=== PATIENT | female | born 2000 | race African-American/Black ===

== ENCOUNTER 2023-08-18 09:23 | Emergency (ER) | payer OTHER ==
--- NOTE | 2023-08-18 09:44 | ED Physician Documentation ---
PD HPI HEADACHE - Stated complaint Stated Complaint: H/A,NAUSEA - Chief complaint Chief Complaint: Neuro - History obtained from History obtained from: Patient - History of Present Illness Timing - onset: Today (onset several hours ago abruptly of nausea and repeititve vmoiting. crampy intermittent mid abd pain.) Timing - onset during: Sleep Timing - duration: Hours (few) Timing - details: Gradual onset (had onset of nausea and vomiting and subsequently has developed headache with standing.), Still present Worst headache ever?: No: Worst headache ever? Location: Global Quality: Throbbing, Aching Associated symptoms: Nausea, Vomiting (nausea and vomiting initially with subsequent PARSONS.). No: Fever, Stiff neck, Weakness, Numbness, Vision changes Worsened by: No: Light, Noise Contributing factors: No: Recent illness, Trauma Similar symptoms before: Has not had sx before (she does have occasional migraines but says this feels different and without light/sound sensitive.) Recently seen: Clinic (she and spouse state pelvic cramping and vag bleeding related to miscarriage about 4 weeks ago, was 6-7 weeks EGA. bleeding stopped after several days. No current vag bleeding. Did home preg test and was positive yesterday. had not done tests between time of miscariage and now.) Review of Systems Constitutional: reports: Myalgias. denies: Fever, Chills Nose: denies: Rhinorrhea / runny nose, Congestion Throat: denies: Sore throat Respiratory: denies: Cough GI: reports: Nausea, Vomiting, Diarrhea (loose but not watery). denies: Hematemesis : denies: Discharge PD PAST MEDICAL HISTORY - Past Medical History Past Medical History: Yes Neuro: Migraines Psych: Anxiety, Post traumatic stress disorder - Past Surgical History Past Surgical History: No - Present Medications Home Medications: Ambulatory Orders Medication Instructions Recorded Confirmed Famotidine [Pepcid] 20 mg PO DAILY #20 tablet 08/18/23 Ondansetron Odt [Zofran] 4 mg TL Q6H PRN #10 tablet 08/18/23 Promethazine [Phenergan] 25 mg PO Q6H PRN #10 tab 08/18/23 - Allergies Allergies/Adverse Reactions: Allergies Allergy/AdvReac Type Severity Reaction Status Date / Time No Known Drug Allergies Allergy Verified 08/18/23 09:32 - Social History Does the pt smoke?: No Smoking Status: Never smoker PD ED PE NORMAL - Vitals Vital signs reviewed: Yes - General General: Alert and oriented X 3, Well developed/nourished, Other (appears uncomfortable due to nausea/ holding emesis bag. ) Results - Vitals Vitals: Vital Signs - 24 hr 08/18/23 08/18/23 09:29 12:35 Temperature 37.1 C Heart Rate 74 68 Respiratory 20 15 Rate Blood Pressure 108/87 H 101/67 O2 Saturation 96 99 Oxygen O2 Source Room air - Labs Labs: Laboratory Tests 08/18/23 08/18/23 08/18/23 10:16 10:16 10:16 WBC 3.0 L RBC 4.03 L Hgb 11.9 L Hct 34.8 L MCV 86.4 MCH 29.5 MCHC 34.2 RDW 12.1 Plt Count 193 MPV 9.4 Neut # (Auto) 1.5 Lymph # (Auto) 1.0 L [place] # (Auto) 0.4 Eos # (Auto) 0.0 Baso # (Auto) 0.0 Absolute Nucleated RBC 0.00 Nucleated RBC % 0.0 Manual Slide Review Indicated Platelet Estimate NORMAL (130-450,000) Platelet Morphology NORMAL APPEARANCE RBC Morph Micro Appear NORMAL APPEARANCE Sodium 135 Potassium 3.8 Chloride 107 Carbon Dioxide 25 Anion Gap 3.0 L BUN 10 Creatinine 0.7 Estimated GFR (MDRD) 128 Glucose 89 Calcium 9.0 Magnesium 1.5 L Total Bilirubin 0.4 AST 15 ALT 9 L Alkaline Phosphatase 38 L Total Protein 7.4 Albumin 4.2 Globulin 3.2 Albumin/Globulin Ratio 1.3 Lipase 58 Beta HCG, Quant Nasal Adenovirus (PCR) NOT DETECTED Nasal B. parapertussis DNA (PCR) NOT DETECTED Nasal Coronavir 229E PCR NOT DETECTED Nasal Coronavir HKU1 PCR NOT DETECTED Nasal Coronavir NL63 PCR NOT DETECTED Nasal Coronavir OC43 PCR NOT DETECTED Nasal Enterovir/Rhinovir PCR NOT DETECTED Nasal Influenza B PCR NOT DETECTED Nasal Influenza A PCR NOT DETECTED Nasal Parainfluen 1 PCR NOT DETECTED Nasal Parainfluen 2 PCR NOT DETECTED Nasal Parainfluen 3 PCR NOT DETECTED Nasal Parainfluen 4 PCR NOT DETECTED Nasal RSV (PCR) NOT DETECTED Nasal B.pertussis DNA PCR NOT DETECTED Nasal C.pneumoniae (PCR) NOT DETECTED Kaye Human Metapneumo PCR NOT DETECTED Nasal M.pneumoniae (PCR) NOT DETECTED Nasal SARS-CoV-2 (PCR) NOT DETECTED 08/18/23 10:16 WBC RBC Hgb Hct MCV MCH MCHC RDW Plt Count MPV Neut # (Auto) Lymph # (Auto) [place] # (Auto) Eos # (Auto) Baso # (Auto) Absolute Nucleated RBC Nucleated RBC % Manual Slide Review Platelet Estimate Platelet Morphology RBC Morph Micro Appear Sodium Potassium Chloride Carbon Dioxide Anion Gap BUN Creatinine Estimated GFR (MDRD) Glucose Calcium Magnesium Total Bilirubin AST ALT Alkaline Phosphatase Total Protein Albumin Globulin Albumin/Globulin Ratio Lipase Beta HCG, Quant 1047.3 Nasal Adenovirus (PCR) Nasal B. parapertussis DNA (PCR) Nasal Coronavir 229E PCR Nasal Coronavir HKU1 PCR Nasal Coronavir NL63 PCR Nasal Coronavir OC43 PCR Nasal Enterovir/Rhinovir PCR Nasal Influenza B PCR Nasal Influenza A PCR Nasal Parainfluen 1 PCR Nasal Parainfluen 2 PCR Nasal Parainfluen 3 PCR Nasal Parainfluen 4 PCR Nasal RSV (PCR) Nasal B.pertussis DNA PCR Nasal C.pneumoniae (PCR) Kaye Human Metapneumo PCR Nasal M.pneumoniae (PCR) Nasal SARS-CoV-2 (PCR) PD Medical Decision Making - ED course Complexity details: reviewed results (WBC low at 3.0 with low lymphocytes more likely c/w viral illness. abrupt NV would be suggestive of viral GE or food related. Not tender in abdomen on exam. I did not feel imaging would be productive. ), re-evaluated patient (IV fludis, Toradol and Zofran did improve symptoms quite well, with now ability to drink fluids, nibble crackers. ), considered differential (likley viral GE but get labs to eval for lipase/LFTs/lytes. ), d/w patient Reviewed Lab Results: she states had home preg test positive yest with recent miscarriage 4-5 weeks ago. She had been 6-7 weeks . I [place] think the downcouarse of the HCG would have gotten below the level of 1047 during that time. Is a bit early for new . Consider retained products with persistent HCG. She is not having pelvic pain nor ongoing vag bleeding. At this point, I believe a repeat HCG in 3 days would be the most informative with decreasing level would support continued phase out, increasing support new , and persisting similar support retained products. She has had ongoing vomiting and poor PO intake for couple weeks. Gave fluids. Potassium not bad today. Consider vitamin depletion with dehydration. Pt improved enough for sips/fluids. Discussed with her the idea of minimal food initially untils jaskaran had healing time. Departure - Departure Disposition: 01 Home, Self Care Clinical Impression: Nausea and vomiting, Headache, Elevated serum hCG Condition: Stable Record reviewed to determine appropriate education?: Yes Instructions: ED Nausea Vomiting Follow-Up: [facility] Sr [Provider Group] Prescriptions: Famotidine [Pepcid] 20 mg PO DAILY #20 tablet Promethazine [Phenergan] 25 mg PO Q6H PRN #10 tab PRN Reason: Nausea / Vomiting Ondansetron Odt [Zofran] 4 mg TL Q6H PRN #10 tablet PRN Reason: Nausea / Vomiting Comments: My presumption is your nausea and vomiting are more likely either a viral irritation or food related or such. I would anticipate it being better after a day or 2. See how you do with it. I prescribed ondansetron/Zofran if needed for nausea. I would suggest an acid reducing medicine such as famotidine once or twice daily over the next week to help with the stomach recovery from the irritation. You likely will have some element of diarrhea as well. Small frequent fluids and bland food initially and progress as tolerated. Rest as well as you can today and tomorrow. Follow-up with your primary if not fully improved over the next 2 to 3 days. Return if worse. I sent your prescriptions to [facility] pharmacy. Regarding your hCG level. This could represent either a still trailing off level of hormone from your recent miscarriage. However sometimes he will have persistent hormone if there are any incomplete miscarriage/retained products. Follow-up with your primary on Monday for repeat hCG blood test. Your blood level today was 1047. Will want to check and see whether it is going up down or staying the same to determine whether it still the phase out or retained products etc. Return sooner if you have uterine/pelvic pain, vaginal bleeding or discharge, fevers or other concerns. Forms: PCP List Discharge Date/Time: 08/18/23 12:35
[2023-08-18] MEDS ORDERED: ONDANSETRON 4 MG/2 ML VIAL IVP STA (10:06)
[2023-08-18] MEDS ORDERED: KETOROLAC 15 MG/ML VIAL IVP STA (10:06)
[2023-08-18] MEDS ORDERED: SODIUM CHLORIDE 0.9% 1,000 ML IV STA (10:06)
[2023-08-18 10:25] LABS: BASOPHILS % (AUTO) 0.3 %; HCT - HEMATOCRIT 34.8 % (37.0-47.0); HGB - HEMOGLOBIN 11.9 g/dL (12.0-16.0); LYMPHOCYTES % (AUTO) 33.8 %; MEAN CORPUSCULAR HEMOGLOBIN 29.5 pg (27.0-31.0); MEAN CORPUSCULAR HGB CONC 34.2 g/dL (32.0-36.0); MEAN CORPUSCULAR VOLUME 86.4 fL (81.0-99.0); MEAN PLATELET VOLUME 9.4 fL (7.9-10.8); MONOCYTES # (AUTO) 0.4 10^3/uL (0.0-1.0); MONOCYTES % (AUTO) 14.5 %; NEUTROPHILS # (AUTO) 1.5 10^3/uL (1.5-6.6); NEUTROPHILS % (AUTO) 50.1 %; PLT - PLATELET COUNT 193 10^3/uL (130-450); RED BLOOD COUNT 4.03 10^6/uL (4.20-5.40); RED CELL DISTRIBUTION WIDTH 12.1 % (12.0-15.0)
[2023-08-18 10:32] LABS: SLIDE REVIEW? Indicated
[2023-08-18 10:42] LABS: ALBUMIN 4.2 g/dL (3.2-5.5); ALBUMIN/GLOBULIN RATIO 1.3 (1.0-2.2); BILIRUBIN,TOTAL 0.4 mg/dL (0.2-1.0); CREATININE 0.7 mg/dL (0.6-1.3); MAGNESIUM 1.5 mg/dL (1.7-2.3); POTASSIUM 3.8 mmol/L (3.5-4.5); TOTAL PROTEIN 7.4 g/dL (6.4-8.9)
[2023-08-18 10:44] LABS: PLATELET ESTIMATE, MANUAL NORMAL (130-450,000) (NORMAL); PLATELET MORPHOLOGY NORMAL APPEARANCE (NORMAL)
[2023-08-18 10:45] LABS: RBC MORPHOLOGY (MULTIPLE) NORMAL APPEARANCE (NORMAL)
[2023-08-18 12:05] LABS: B. PARAPERTUSSIS- RESP PCR PAN NOT DETECTED; B. PERTUSSIS- RESP PCR PANEL NOT DETECTED; C. PNEUMONIAE- RESP PCR PANEL NOT DETECTED; CORONAVIRUS 229E-RESP PCR NOT DETECTED; CORONAVIRUS HKU1-RESP PCR NOT DETECTED; CORONAVIRUS NL63-RESP PCR NOT DETECTED; CORONAVIRUS OC43-RESP PCR NOT DETECTED; HUMAN METAPNEUMOVIRUS NOT DETECTED; INFLUENZA A- RESP PCR PANEL NOT DETECTED; INFLUENZA B - RESP PCR PANEL NOT DETECTED; M. PNEUMONIAE- RESP PCR PANEL NOT DETECTED; PARAINFLUENZA VIRUS 1 NOT DETECTED; PARAINFLUENZA VIRUS 2 NOT DETECTED; PARAINFLUENZA VIRUS 3 NOT DETECTED; PARAINFLUENZA VIRUS 4 NOT DETECTED; RHINOVIRUS/ENTEROVIRUS NOT DETECTED; RSV- RESP PCR PANEL NOT DETECTED; SARS-CoV-2 -RESP PCR PANEL NOT DETECTED
[2023-08-18 12:40] VITALS: BP 101/67; O2SAT 99
== END 2023-08-18 12:35 | disposition home or self-care (01) ==
LOC: ED 09:23
DX: R11.2 Nausea with vomiting, unspecified (principal); R51.9 Headache, unspecified; O02.81 Inappropriate change in quantitative human chorionic gonadotropin (hCG) in early pregnancy
CPT/HCPCS: 36415; 80053; 83690; 83735; 84702; 85025; 87633; 96374; 99284

== ENCOUNTER 2023-10-03 15:37 | Outpatient (CLI) | payer OTHER ==
--- NOTE | 2023-10-03 17:58 | Ultrasound Report ---
PROCEDURE: OB 1st Trimester w/TV INDICATIONS: POSITIVE TEST OUTSIDE/PRIOR DATING DATA: Last menstrual period (LMP): Unknown. LMP-based estimated date of delivery (MAIA): Unknown. First dating scan (date and location): 10/03/2023. Estimated date of delivery (MAIA) from first dating scan: 04/22/2024. TECHNIQUE: Real-time scanning was performed of the fetus and maternal pelvic organs, with image documentation. Endovaginal scanning was also performed to better visualize the fetus and maternal ovaries. COMPARISON: None. FINDINGS: Intrauterine gestational sac present. Embryo: 4.35 cm, 11 weeks 1 day Heart rate: 173 bpm. Other: Very small perigestational fluid collection. Measurement variability in dating: +/- 4 weeks by LMP, +/- 7 days by mean sac diameter (use before 6 weeks gestation if crown-rump length not able to be measured), +/- 5 days by crown-rump length (6-12 weeks gestation). Maternal organs: Ovaries appear within normal limits. Corpus luteum of the right ovary measuring 1.7 cm in maximum diameter. IMPRESSION: 1. Living first trimester intrauterine with crown-rump length and heartbeat measuring 11 we eks 1 day. 2. Very small perestational bleed. Reviewed by: Antwan Buchanan MD on 10/03/2023 5:57 PM PST Approved by: Antwan Buchanan MD on 10/03/2023 5:57 PM PST Station ID: [id number]
== END 2023-10-03 15:38 | disposition home or self-care (01) ==
LOC: DI 15:37
PROVIDERS: ATTEND Obstetrics & Gynecology
DX: O20.8 Other hemorrhage in early pregnancy (principal); Z3A.11 11 weeks gestation of pregnancy

== ENCOUNTER 2023-10-13 08:00 | Outpatient (CLI) | payer OTHER ==
[2023-10-13 20:39] LABS: CHLAMYDIA TRACHOMATIS DNA NEGATIVE (NEGATIVE); NEISSERIA GONORRHOEAE DNA NEGATIVE (NEGATIVE); TRICHOMONAS VAGINALIS DNA NEGATIVE (NEGATIVE)
== END 2023-10-13 23:59 | disposition home or self-care (01) ==
LOC: LAB.WC 08:00
PROVIDERS: ATTEND Obstetrics & Gynecology
DX: Z11.3 Encounter for screening for infections with a predominantly sexual mode of transmission (principal)
CPT/HCPCS: 87491; 87591; 87661

== ENCOUNTER 2023-10-13 12:32 | Outpatient (CLI) | payer OTHER ==
[2023-10-13 12:52] LABS: BASOPHILS % (AUTO) 0.2 %; EOSINOPHILS % (AUTO) 0.4 %; HCT - HEMATOCRIT 35.6 % (37.0-47.0); LYMPHOCYTES # (AUTO) 1.1 10^3/uL (1.5-3.5); LYMPHOCYTES % (AUTO) 22.5 %; MEAN CORPUSCULAR HEMOGLOBIN 30.2 pg (27.0-31.0); MEAN CORPUSCULAR HGB CONC 33.7 g/dL (32.0-36.0); MEAN CORPUSCULAR VOLUME 89.7 fL (81.0-99.0); MEAN PLATELET VOLUME 9.6 fL (7.9-10.8); MONOCYTES # (AUTO) 0.5 10^3/uL (0.0-1.0); MONOCYTES % (AUTO) 10.4 %; NEUTROPHILS # (AUTO) 3.3 10^3/uL (1.5-6.6); NEUTROPHILS % (AUTO) 66.3 %; PLT - PLATELET COUNT 225 10^3/uL (130-450); RED BLOOD COUNT 3.97 10^6/uL (4.20-5.40); RED CELL DISTRIBUTION WIDTH 13.2 % (12.0-15.0)
[2023-10-15 04:08] LABS: HBsAG SCREEN Negative (Negative)
[2023-10-15 05:08] LABS: RPR Non Reactive (Non Reactive)
[2023-10-15 09:08] LABS: HIV SCREEN 4TH GENERATION Non Reactive (Non Reactive)
[2023-10-15 11:08] LABS: HCV AB Non Reactive (Non Reactive)
[2023-10-16 14:08] LABS: VARICELLA-ZOSTER AB IGG <135 index (Immune >165)
== END 2023-10-13 12:33 | disposition home or self-care (01) ==
LOC: LAB 12:32
PROVIDERS: ATTEND Obstetrics & Gynecology
DX: Z34.00 Encounter for supervision of normal first pregnancy, unspecified trimester (principal); Z36.89 Encounter for other specified antenatal screening
CPT/HCPCS: 36415; 85025; 86592; 86762; 86787; 86803; 86850; 86900; 86901; 87340; 87389

== ENCOUNTER 2023-11-09 19:37 | Emergency (ER) | payer OTHER ==
[2023-11-09 19:53] VITALS: O2SAT 100
[2023-11-09] MEDS: ONDANSETRON ODT 4 MG TABLET TL STA (20:23)
[2023-11-09 20:45] LABS: BASOPHILS % (AUTO) 0.2 %; EOSINOPHILS % (AUTO) 0.2 %; HCT - HEMATOCRIT 37.3 % (37.0-47.0); HGB - HEMOGLOBIN 12.9 g/dL (12.0-16.0); LYMPHOCYTES % (AUTO) 18.1 %; MEAN CORPUSCULAR HEMOGLOBIN 30.4 pg (27.0-31.0); MEAN CORPUSCULAR HGB CONC 34.6 g/dL (32.0-36.0); MEAN CORPUSCULAR VOLUME 87.8 fL (81.0-99.0); MONOCYTES # (AUTO) 0.5 10^3/uL (0.0-1.0); MONOCYTES % (AUTO) 9.8 %; NEUTROPHILS # (AUTO) 3.9 10^3/uL (1.5-6.6); NEUTROPHILS % (AUTO) 71.1 %; PLT - PLATELET COUNT 197 10^3/uL (130-450); RED BLOOD COUNT 4.25 10^6/uL (4.20-5.40); WHITE BLOOD COUNT 5.4 x10^3/uL (4.8-10.8)
[2023-11-09 20:52] LABS: BILIRUBIN,URINE NEGATIVE (NEGATIVE); GLUCOSE, URINE (UA) NEGATIVE (NEGATIVE); KETONES,URINE (UA) TRACE mg/dL (NEGATIVE); LEUKOCYTE ESTERASE, URINE NEGATIVE (NEGATIVE); NITRITE,URINE NEGATIVE (NEGATIVE); OCCULT BLOOD,URINE NEGATIVE (NEGATIVE); PH,URINE 7.5 PH (5.0-7.5); PROTEIN,URINE NEGATIVE (NEGATIVE); UROBILINOGEN,URINE 0.2 (NORMAL) E.U./dL (NORMAL)
[2023-11-09 20:59] LABS: CLARITY,URINE CLOUDY (CLEAR)
[2023-11-09 21:14] LABS: AMORPHOUS SEDIMENT,UR Moderate /LPF; BACTERIA,URINE Few /HPF (None Seen); RBC,URINE None Seen /HPF (0-5); SQUAMOUS EPITHELIAL CELL,UR MOD Squamous (<= Few); WBC,URINE 0-3 /HPF (0-5)
[2023-11-09 21:26] LABS: ALBUMIN 4.2 g/dL (3.2-5.5); ALBUMIN/GLOBULIN RATIO 1.1 (1.0-2.2); BILIRUBIN,TOTAL 0.4 mg/dL (0.2-1.0); CALCIUM 9.5 mg/dL (8.5-10.3); CREATININE 0.6 mg/dL (0.6-1.3)
[2023-11-09] MEDS: SODIUM CHLORIDE 0.9% 1,000 ML IV STA (21:38)
[2023-11-09] MEDS: ONDANSETRON 4 MG/2 ML VIAL IVP STA (21:39)
[2023-11-09] MEDS: HYDROmorphone 0.5 MG/0.5 ML SYRINGE IVP STA (21:43)
[2023-11-09 21:56] VITALS: BP 117/86
--- NOTE | 2023-11-09 22:30 | ED Physician Documentation ---
History of Present Illness - Stated complaint Stated Complaint: PREG/CRAMPING/ABD PX - Chief complaint Chief Complaint: Abd Pain - History obtained from History obtained from: Patient - Additonal information Additional information: The patient comes to the emergency department chief complaint of abdominal cramping and lower abdominal pain. Patient is about 16 weeks and has had care. She is known to have an intrauterine and denies any bleeding or fluid leakage. She has just started feeling her baby move recently and has been feeling the baby move today. She denies any vaginal discharge that seems different than what she has been having throughout her . She denies any fevers or chills. She has had nausea throughout her and states this is unchanged from what it has been. No other complaints at this time. PD PAST MEDICAL HISTORY - Past Medical History Neuro: Migraines Psych: Anxiety, Post traumatic stress disorder - Past Surgical History Past Surgical History: No - Present Medications Home Medications: Ambulatory Orders Medication Instructions Recorded Confirmed Famotidine [Pepcid] 20 mg PO DAILY #20 tablet 08/18/23 Ondansetron Odt [Zofran] 4 mg TL Q6H PRN #10 tablet 08/18/23 Promethazine [Phenergan] 25 mg PO Q6H PRN #10 tab 08/18/23 - Allergies Allergies/Adverse Reactions: Allergies Allergy/AdvReac Type Severity Reaction Status Date / Time No Known Drug Allergies Allergy Verified 11/09/23 19:51 - Social History Does the pt smoke?: No Smoking Status: Never smoker PD ED PE NORMAL - Vitals Vital signs reviewed: Yes - General General: Alert and oriented X 3, No acute distress, Well developed/nourished, Other (Patient appears mildly uncomfortable, otherwise no apparent distress.) - HEENT HEENT: Atraumatic, EOMI, Moist mucous membranes - Neck Neck: Supple, no meningeal sign - Cardiac Cardiac: RRR, No murmur - Respiratory Respiratory: No respiratory distress, Clear bilaterally - Abdomen Abdomen: Soft, Other (Mild lower abdominal tenderness, no rebound or guarding. Mildly gravid abdomen, consistent with dates.) - Derm Derm: Normal color, Warm and dry, No rash - Extremities Extremities: No deformity, No edema - Neuro Neuro: Other (Grossly intact) - Psych Psych: Normal mood, Normal affect Results - Vitals Vitals: Oxygen O2 Source Room air - Labs Labs: Laboratory Tests 11/09/23 11/09/23 11/09/23 20:30 20:30 20:30 WBC 5.4 RBC 4.25 Hgb 12.9 Hct 37.3 MCV 87.8 MCH 30.4 MCHC 34.6 RDW 13.0 Plt Count 197 MPV 10.0 Neut # (Auto) 3.9 Lymph # (Auto) 1.0 L [place] # (Auto) 0.5 Eos # (Auto) 0.0 Baso # (Auto) 0.0 Absolute Nucleated RBC 0.00 Nucleated RBC % 0.0 Sodium 130 L Potassium 4.0 Chloride 101 Carbon Dioxide 20 L Anion Gap 9.0 BUN 11 Creatinine 0.6 Estimated GFR (MDRD) 153 Glucose 88 Calcium 9.5 Total Bilirubin 0.4 AST 22 ALT 9 L Alkaline Phosphatase 27 L Total Protein 8.0 Albumin 4.2 Globulin 3.8 Albumin/Globulin Ratio 1.1 Lipase 38 Urine Color YELLOW Urine Clarity CLOUDY Urine pH 7.5 Ur Specific [place] 1.020 Urine Protein NEGATIVE Urine Glucose (UA) NEGATIVE Urine Ketones TRACE Urine Occult Blood NEGATIVE Urine Nitrite NEGATIVE Urine Bilirubin NEGATIVE Urine Urobilinogen 0.2 (NORMAL) Ur Leukocyte Esterase NEGATIVE Urine RBC None Seen Urine WBC 0-3 Ur Squamous Epith Cells MOD Squamous H Amorphous Sediment Moderate Urine Bacteria Few Ur Microscopic Review INDICATED Urine Culture Comments NOT INDICATED PD Medical Decision Making - ED course Complexity details: reviewed results, re-evaluated patient, considered dif ferential, d/w patient ED course: Patient was worked up with heart tones, which were found to be in the 150s. Labs and urinalysis were unremarkable. She was treated symptomatically in the emergency department with a small dose of analgesia and was found to be feeling much better. Patient was stable for discharge home. Departure - Departure Disposition: Home, Self Care Clinical Impression: Gastritis Qualifiers: Gastritis type: unspecified gastritis Chronicity: acute Gastritis bleeding: without bleeding Qualified Code(s): K29.00 - Acute gastritis without bleeding Qualifiers: Weeks of gestation: 16 weeks Qualified Code(s): Z3A.16 - 16 weeks gestation of Condition: Stable Instructions: ED Abdominal Pain Female Non-Specific Abdominal Pain Comments: Your tests all look good. There is no evidence of a urinary tract infection or any other problems at this point in time. You most likely have inflammation in the stomach from one of the many viruses that are going around. Please follow-u p with your primary doctor as needed. Please follow-up with your OB doctor as scheduled. Forms: PCP List Discharge Date/Time: 11/09/23 22:37
== END 2023-11-09 22:37 | disposition home or self-care (01) ==
LOC: ED 19:37
DX: O99.612 Diseases of the digestive system complicating pregnancy, second trimester (principal); K29.00 Acute gastritis without bleeding; Z3A.16 16 weeks gestation of pregnancy
CPT/HCPCS: 36415; 80053; 81001; 83690; 85025; 96374; 96375; 99283; 99284; J1170; Q0162; 81003; 87086

== ENCOUNTER 2023-12-05 08:47 | Outpatient (CLI) | payer OTHER | END 2023-12-05 08:48 | disposition home or self-care (01) | LOC: DI 08:47 | PROVIDERS: ATTEND Obstetrics & Gynecology | DX: Z53.9 Procedure and treatment not carried out, unspecified reason (principal) ==

== ENCOUNTER 2023-12-06 21:09 | Outpatient (CLI) | payer OTHER ==
--- NOTE | 2023-12-08 15:03 | Ultrasound Report ---
PROCEDURE: OB Anatomy Scan INDICATIONS: SUPERVISION OF NORMAL OUTSIDE/PRIOR DATING DATA: Last menstrual period (LMP): Not available. LMP-based estimated date of delivery (MAIA): Not available. First dating scan (date and location): 10/03/2023 at [facility]. Estimated date of delivery (MAIA) from first dating scan: 04/22/2024. The below data below was generated using the working MAIA of 04/22/2024 TECHNIQUE: Real-time scanning was performed of the fetus, with image documentation and biometric measurements. Endovaginal scanning: Not performed. COMPARISON: OB ultrasound 10/03/2023. FINDINGS: General: A single living intrauterine gestation is present. Presentation: Variable Placenta: Placental position is posterior, without previa. Amniotic fluid index: 11.2 cm, with the largest pocket measuring 3.3 cm. heart rate: 150 beats per minute. Maternal cervical canal: 3.3 cm long; normal length is 2.5 cm or more. biometrics: Biparietal diameter: 4.67 cm; 20 weeks 1 day; 42.3%. Head circumference: 19.58 cm; 21 weeks 5 days; 93.8%. Abdominal circumference: 16.05 cm; 21 weeks 1 day; 72.4%. Femur length: 3.27 cm; 20 weeks 1 day; 39.0%. Estimated gestational age from initial scan: 20 weeks 2 days Composite gestational age from present scan: 20 weeks 6 days Estimated weight and percentile: 378.0 g; 74.1% Measurement variability in biometric dating: +/- 10 days from 12-20 weeks gestation, +/- 2 weeks from 20-30 weeks gestation, +/- 3 weeks at 30 weeks gestation or later. Anatomic survey: Neuro: Not well seen. Nuchal skin fold: Not well seen. Face: Not well seen. Spine: Limited normal. No evidence for spina bifida. Heart: Not well seen. Diaphragm: Diaphragm is intact. Stomach: Left-sided stomach is present. Kidneys: No hydronephrosis. Normal is less than 5 mm in 2nd trimester, less than 7 mm in 3rd trimester. Cord: Question partial cord insertion. Cord insertion measures 0.9 cm from the superior placental ma rgin. 3 vessel cord has orthotopic insertion. Bladder: Normal in size. Extremities: All 4 extremities are visualized. IMPRESSION: 1. A single living IUP with appropriate interval growth. 2. The estimated weight is 74.1% for gestational age. 3. Normal DESMOND. 4. Question marginal placental cord insertion. 5. Severe limited anatomic survey due to the patient's body habitus and position. Recomme nd follow-up exam. Reviewed by: Micheal Quinn MD on 12/08/2023 3:01 PM PDT Approved by: Micheal Quinn MD on 12/08/2023 3:01 PM PDT Station ID: [id number]
== END 2023-12-06 21:10 | disposition home or self-care (01) ==
LOC: DI 21:09
PROVIDERS: ATTEND Obstetrics & Gynecology
DX: Z34.82 Encounter for supervision of other normal pregnancy, second trimester (principal)

== ENCOUNTER 2023-12-07 19:58 | Outpatient (CLI) | payer OTHER ==
[2023-12-07] MEDS: ONDANSETRON ODT 4 MG TABLET TL PRN (20:36)
[2023-12-07 20:49] VITALS: BP 103/66
--- NOTE | 2023-12-07 20:58 | PROVIDER PROGRESS NOTE ---
- HPI Chief Complaint: GI symptoms Current : Vital Signs Temperature 99.5 F 12/07/23 20:26 Heart Rate 80 12/07/23 20:26 Respiratory Rate 18 12/07/23 20:26 Blood Pressure 103/66 12/07/23 20:26 Temperature 99.5 F 12/07/23 20:26 Heart Rate 80 12/07/23 20:26 Respiratory Rate 18 12/07/23 20:26 Blood Pressure 103/66 12/07/23 20:26 O2 Saturation If not protocol: Oxygen Flow, liters/minute - Plan Plan: Patient is a 23-year-old G1, P0 at 20 weeks gestation presenting for nausea, vomiting, diarrhea for 1 day. She has not taken anything for this. Takes small sips, but has vomited anything she has eaten, including soup. Baby moving well. Did have several episodes of diarrhea, but less bothersome than her vomiting. Physical Exam Constitutional: alert, no acute distress, well hydrated, well developed, well nourished, appropriate dress. Cardiovascular: Regular rate and rhythm. Respiratory: no respiratory distress. Abdomen: nondistended, nontender, no guarding. Psych: affect and mood appropriate, normal interaction, good eye contact. heart tones: 145 Assessment and plan Gastroenteritis -[place] better with ondansetron. Says this usually works for her but she is not having at home. Tries to avoid medication. [facility] -Can take Imodium if needed. -Frequent handwashing. Avoid contaminating others. -Small frequent meals and drinks. -Patient feeling better after medication and tolerating PO and feels safe to return home. 20 weeks gestation -Routine care
== END 2023-12-07 21:20 | disposition home or self-care (01) ==
LOC: WFO 19:58 → FBP 20:00 → WFO 21:20
PROVIDERS: ATTEND Obstetrics & Gynecology
DX: O99.612 Diseases of the digestive system complicating pregnancy, second trimester (principal); K52.9 Noninfective gastroenteritis and colitis, unspecified; Z3A.20 20 weeks gestation of pregnancy
CPT/HCPCS: 99213; Q0162

== ENCOUNTER 2024-01-11 10:53 | Outpatient (CLI) | payer OTHER ==
--- NOTE | 2024-01-11 14:23 | Ultrasound Report ---
PROCEDURE: OB Follow up INDICATIONS: SUPERVISION OF OUTSIDE/PRIOR DATING DATA: Last menstrual period (LMP): Unknown. LMP-based estimated date of delivery (MAIA): N/A. First dating scan (date and location): 10/03/2023. Estimated date of delivery (MAIA) from first dating scan: 04/22/2024. The below data below was generated using the ultrasound MAIA of 04/22/2024 TECHNIQUE: Real-time scanning was performed of the fetus, with image documentation and biometric measurements. Endovaginal scanning: Not performed. COMPARISON: OB ultrasound 12/06/2023 at 10/03/2023 FINDINGS: General: A single living intrauterine gestation is present. Presentation: Vertex Placenta: Placental position is posterior fundal, without previa. Amniotic fluid index: 12.2 cm, within normal limits for gestational age. heart rate: 116 beats per minute. Maternal cervical canal: 3.1 cm long; normal length is 2.5 cm or more. biometrics: Biparietal diameter: 6.1 cm, 24 weeks 5 days, 19th percentile Head circumference: 22.7 cm, 24 weeks 5 days, 10th percentile Abdominal circumference: Not evaluated Femur length: Not evaluated Estimated gestational age from initial scan: 25 weeks 3 days Anatomic survey: Neuro: Ventricles are non-dilated at less than 10 mm. Cisterna magna is normal at 3-11 mm. Cerebel lum is normal in size and morphology. Nuchal skin fold: Not evaluated due to gestational age. Face: Nose and lips, facial profile are normal. Spine: Intact on sagittal images. No evidence for spina bifida. Heart: 4-chambered heart is present, with normal left ventricular outflow tract. Right ventricular o utflow tract not evaluated, better seen on the prior exam. Diaphragm: Diaphragm is intact. Stomach: Left-sided stomach is present. Kidneys: No hydronephrosis. Normal is less than 5 mm in 2nd trimester, less than 7 mm in 3rd trimester. Cord: Abdominal insertion not evaluated. There is normal orthotopic placental cord insertion. Bladder: Not evaluated Extremities: Not evaluated. IMPRESSION: 1.Single live intrauterine . 2.Completion anatomic survey is within normal limits for gestational age. 3.Normal placental cord insertion. No evidence for marginal insertion on this exam. Reviewed by: Darshan Henderson MD on 01/11/2024 2:22 PM PDT Approved by: Darshan Henderson MD on 01/11/2024 2:22 PM PDT Station ID: [id number]
== END 2024-01-11 10:54 | disposition home or self-care (01) ==
LOC: DI 10:53
PROVIDERS: ATTEND Obstetrics & Gynecology
DX: Z34.82 Encounter for supervision of other normal pregnancy, second trimester (principal)

== ENCOUNTER 2024-02-06 13:35 | Outpatient (CLI) | payer OTHER ==
[2024-02-06 17:38] LABS: HCT - HEMATOCRIT 34.2 % (37.0-47.0); HGB - HEMOGLOBIN 11.5 g/dL (12.0-16.0); MEAN CORPUSCULAR HEMOGLOBIN 30.7 pg (27.0-31.0); MEAN CORPUSCULAR HGB CONC 33.6 g/dL (32.0-36.0); MEAN CORPUSCULAR VOLUME 91.2 fL (81.0-99.0); MEAN PLATELET VOLUME 11.2 fL (7.9-10.8); RED BLOOD COUNT 3.75 10^6/uL (4.20-5.40); RED CELL DISTRIBUTION WIDTH 12.5 % (12.0-15.0); WHITE BLOOD COUNT 6.4 x10^3/uL (4.8-10.8)
[2024-02-07 04:09] LABS: RPR Non Reactive (Non Reactive)
== END 2024-02-06 13:36 | disposition home or self-care (01) ==
LOC: LAB.N 13:35
PROVIDERS: ATTEND Obstetrics & Gynecology
DX: Z34.80 Encounter for supervision of other normal pregnancy, unspecified trimester (principal)
CPT/HCPCS: 36415; 82950; 85027; 86592

== ENCOUNTER 2024-02-08 16:19 | Outpatient (CLI) | payer OTHER ==
--- NOTE | 2024-02-09 08:54 | Ultrasound Report ---
PROCEDURE: OB Follow up INDICATIONS: POOR GROWTH OUTSIDE/PRIOR DATING DATA: Last menstrual period (LMP): Unknown. LMP-based estimated date of delivery (MAIA): Unknown. First dating scan (date and location): 10/03/2023. Estimated date of delivery (MAIA) from first dating scan: 04/22/2024. The below data below was generated using the working MAIA of 04/22/2024 TECHNIQUE: Real-time scanning was performed of the fetus, with image documentation and biometric measurements. Endovaginal scanning: Not performed. COMPARISON: 10/03/2023, 12/06/2023, 01/11/2024 FINDINGS: General: A single living intrauterine gestation is present. Presentation: Vertex Placenta: Placental position is posterior, without previa. Amniotic fluid index: 12.5 cm, 27.1% for gestational age. heart rate: 133 beats per minute. Maternal cervical canal: Not evaluated.. biometrics: Biparietal diameter: 7.37 cm, 29 weeks, 4 days, 41.9% Head circumference: 28.42 cm, 31 weeks, 1 day, 68.6% Abdominal circumference: 24.06 cm, 28 weeks, 2 days, 15.2% Femur length: 5.54 cm, 29 weeks, 1 day, 28.2% Estimated gestational age from initial scan: 29 weeks, 3 days Composite gestational age from present scan: 29 weeks, 4 days Estimated weight and percentile: 1316 g, 22.7% Measurement variability in biometric dating: +/- 10 days from 12-20 weeks gestation, +/- 2 weeks from 20-30 weeks gestation, +/- 3 weeks at 30 weeks gestation or more. Other: Not applicable. IMPRESSION: 1. Single live intrauterine gestation with fetus in vertex presentation. heart rate is 133 bpm. Normal DESMOND at 12.5 cm. Estimated weight is at 22.7%. Reviewed by: Han Rucker MD on 02/09/2024 8:53 AM PDT Approved by: Han Rucker MD on 02/09/2024 8:53 AM PDT Station ID: [id number]
== END 2024-02-08 16:20 | disposition home or self-care (01) ==
LOC: DI 16:19
PROVIDERS: ATTEND Obstetrics & Gynecology
DX: O36.5930 Maternal care for other known or suspected poor fetal growth, third trimester, not applicable or unspecified (principal); Z3A.29 29 weeks gestation of pregnancy

== ENCOUNTER 2024-03-18 09:40 | Outpatient (CLI) | payer OTHER ==
--- NOTE | 2024-03-18 10:23 | PROVIDER PROGRESS NOTE ---
- HPI Chief Complaint: Pain, non-labor - Procedures OB Procedure Performed: NST Diagnosis/Indication for NST: Other (pelvic pain) Service Date of procedure: 03/18/24 (Read 03/18/24) - Plan Plan: Patient is a 24-year-old 1 at 35 weeks gestation presented today for low pelvic pain. She was playing football last night and thinks she sprained her muscles but is worried about her hips being broken. Her pain is worsened this morning and came in for evaluation. Feels good movement. No leaking, bleeding, contractions. She does have pain in her bilateral inguinal areas. Worse with movement. Worse when shifting in bed, standing, putting weight on the limbs. Denies dysuria or increased urinary frequency. Exam General: Alert, oriented, no acute distress. Mild suprapubic discomfort Abdomen: Gravid, soft, nontender Musculoskeletal: No pain with hip compression. Pain with movement to the inguinal canals. No pain to palpation. FHT: 130 bpm baseline, moderate variability, accelerations, no decelerations. Show Low: Occasional irritability Assessment and plan Musculoskeletal strain -Given the likelihood of muscular strain after playing sports last night, low likelihood of any significant harm. Very low likelihood of hip fracture given no trauma, but did discuss x-ray with patient, and she agrees this is likely not necessary. Has not tried anything for pain and declines needs for medication. Discussed rest, warm baths, massage. If pain worsens, should return, but in general she appears well and I have low concern for significant pathology. -Did check UA, but reassuring. 35 weeks gestation
[2024-03-18 10:47] LABS: BILIRUBIN,URINE NEGATIVE (NEGATIVE); GLUCOSE, URINE (UA) NEGATIVE (NEGATIVE); KETONES,URINE (UA) NEGATIVE (NEGATIVE); LEUKOCYTE ESTERASE, URINE NEGATIVE (NEGATIVE); NITRITE,URINE NEGATIVE (NEGATIVE); OCCULT BLOOD,URINE TRACE-INTA (NEGATIVE); PROTEIN,URINE NEGATIVE (NEGATIVE); UROBILINOGEN,URINE 0.2 (NORMAL) E.U./dL (NORMAL)
[2024-03-18 10:48] LABS: CLARITY,URINE CLEAR (CLEAR)
[2024-03-18 10:49] VITALS: BP 113/78
[2024-03-18 11:15] LABS: BACTERIA,URINE Few /HPF (None Seen); RBC,URINE 0-5 /HPF (0-5); SQUAMOUS EPITHELIAL CELL,UR MOD Squamous (<= Few); WBC,URINE 0-3 /HPF (0-5)
== END 2024-03-18 10:55 | disposition home or self-care (01) ==
LOC: FBP 09:40 → WFO 09:40
PROVIDERS: ATTEND Obstetrics & Gynecology
DX: O99.891 Other specified diseases and conditions complicating pregnancy (principal); R10.2 Pelvic and perineal pain; R10.30 Lower abdominal pain, unspecified; O9A.213 Injury, poisoning and certain other consequences of external causes complicating pregnancy, third trimester; T14.8XXA Other injury of unspecified body region, initial encounter; Y93.61 Activity, american tackle football; Z3A.35 35 weeks gestation of pregnancy
CPT/HCPCS: 59025; 81001; 87086; 99213

== ENCOUNTER 2024-03-28 08:00 | Outpatient (CLI) | payer OTHER | END 2024-03-28 23:59 | disposition home or self-care (01) | LOC: LAB.WC 08:00 | PROVIDERS: ATTEND Obstetrics & Gynecology | DX: Z36.85 Encounter for antenatal screening for Streptococcus B (principal) | CPT/HCPCS: 87797 ==

== ENCOUNTER 2024-04-08 19:37 | Outpatient (CLI) | payer OTHER ==
--- NOTE | 2024-04-09 10:56 | Ultrasound Report ---
PROCEDURE: OB Follow up INDICATIONS: POOR GROWTH OUTSIDE/PRIOR DATING DATA: Last menstrual period (LMP): Unknown. First dating scan (date and location): 10/03/2023. Estimated date of delivery (MAIA) from first dating scan: 04/22/2024. TECHNIQUE: Real-time scanning was performed of the fetus, with image documentation and biometric measurements. COMPARISON: 03/08/2024 FINDINGS: General: A single living intrauterine gestation is present. Presentation: Vertex Placenta: Placental position is posterior, without previa. Amniotic fluid index: 11.8 cm, within normal limits for gestational age. heart rate: 137 beats per minute. Maternal cervical canal: Not imaged . biometrics: Biparietal diameter: 9.03 cm, 36 weeks and 4 days, 34% Head circumference: 33.4 cm, 38 weeks and 1 day, 34.1% Abdominal circumference: 30.48 cm, 34 weeks and 3 days, 1.3% Femur length: 6.82 cm, 35 weeks, 2.5% Estimated gestational age from initial scan: 38 weeks Composite gestational age from present scan: 36 weeks Estimated weight and percentile: 2618 g, 6.6% Measurement variability in biometric dating: +/- 10 days from 12-20 weeks gestation, +/- 2 weeks from 20-30 weeks gestation, +/- 3 weeks at 30 weeks gestation or more. Cord Doppler range from 3.7-2.6 SD ratios. On visual evaluation, diastolic flow is preserved. Due to position, examination was limited. IMPRESSION: Single living intrauterine gestation in vertex presentation. EFW is lower than expected, at the 6.6 percentile. Abdominal circumference in particular is lower salas n expected, at the 1.3 percentile. Borderline elevated cord Doppler, with SD ratio 3.7 at the placental end. Subjectively preserved jimenez tolic flow. Developing IUGR is possible. Normal DESMOND. Findings communicated to Dr. Bejarano by technologist at the time of examination Reviewed by: Jose Francisco Chaparro MD on 04/09/2024 10:55 AM PDT Approved by: Jose Francisco Chaparro MD on 04/09/2024 10:55 AM PDT Station ID: [id number]
== END 2024-04-08 19:38 | disposition home or self-care (01) ==
LOC: DI 19:37
PROVIDERS: ATTEND Obstetrics & Gynecology
DX: O36.5930 Maternal care for other known or suspected poor fetal growth, third trimester, not applicable or unspecified (principal); Z3A.36 36 weeks gestation of pregnancy

== ENCOUNTER 2024-04-09 18:13 | Inpatient (IN) | payer OTHER ==
[2024-04-09] MEDS ORDERED: NIFEdipine 10 MG CAPSULE PO PRN (19:11)
[2024-04-09] MEDS ORDERED: CALCIUM CARBONATE CHEW 500 MG TABLET PO PRN (19:11)
[2024-04-09] MEDS ORDERED: miSOPROStoL 200 MCG TABLET PR PRN (19:11)
[2024-04-09] MEDS ORDERED: SODIUM CHLORIDE FLUSH 0.9% 10 ML SYRINGE IVP PRN (19:11)
[2024-04-09] MEDS ORDERED: lidocaine 1% 20 ML MDV ID PRN (19:11)
[2024-04-09] MEDS ORDERED: ONDANSETRON 4 MG/2 ML VIAL IVP PRN (19:11)
[2024-04-09] MEDS ORDERED: ONDANSETRON ODT 4 MG TABLET PO PRN (19:11)
[2024-04-09] MEDS ORDERED: diphenhydrAMINE INJ 50 MG/ML VIAL IVP PRN (19:11)
[2024-04-09] MEDS ORDERED: fentaNYL 100 MCG/2 ML VIAL IVP PRN (19:11)
[2024-04-09] MEDS ORDERED: TERBUTALINE 1 MG/ML VIAL SUBQ PRN (19:11)
[2024-04-09] MEDS ORDERED: METOCLOPRAMIDE 10 MG/2 ML VIAL IVP PRN (19:11)
[2024-04-09] MEDS ORDERED: LACTATED RINGERS 1,000 ML IV PRN (19:11)
[2024-04-09] MEDS ORDERED: OXYTOCIN 10 UNIT/ML VIAL IM PRN (19:11)
[2024-04-09] MEDS ORDERED: miSOPROStoL 200 MCG TABLET BC PRN (19:11)
[2024-04-09] MEDS ORDERED: METHYLERGONOVINE 0.2 MG/ML VIAL IM PRN (19:11)
[2024-04-09] MEDS ORDERED: CARBOPROST TROMETHAMINE 250 MCG/ML VIAL IM PRN (19:11)
[2024-04-09] MEDS ORDERED: hydrALAZINE INJ 20 MG/ML VIAL IVP PRN ×2 (19:11)
[2024-04-09] MEDS ORDERED: LABETALOL 20 MG/4 ML SYRINGE IVP PRN ×3 (19:11)
[2024-04-09] MEDS ORDERED: TRANEXAMIC ACID IN NACL 1,000 MG/100 ML BAG IV PRN (19:11)
[2024-04-09] MEDS ORDERED: SODIUM CHLORIDE FLUSH 0.9% 10 ML SYRINGE IVP SCH (20:00)
[2024-04-09] MEDS: miSOPROStoL 100 MCG TABLET BC SCH (20:16)
[2024-04-09 22:01] LABS: BASOPHILS % (AUTO) 0.1 %; EOSINOPHILS % (AUTO) 0.4 %; HCT - HEMATOCRIT 33.6 % (37.0-47.0); HGB - HEMOGLOBIN 11.4 g/dL (12.0-16.0); LYMPHOCYTES # (AUTO) 1.5 10^3/uL (1.5-3.5); LYMPHOCYTES % (AUTO) 22.8 %; MEAN CORPUSCULAR HEMOGLOBIN 30.8 pg (27.0-31.0); MEAN CORPUSCULAR HGB CONC 33.9 g/dL (32.0-36.0); MEAN CORPUSCULAR VOLUME 90.8 fL (81.0-99.0); MEAN PLATELET VOLUME 12.1 fL (7.9-10.8); MONOCYTES # (AUTO) 0.8 10^3/uL (0.0-1.0); MONOCYTES % (AUTO) 11.6 %; NEUTROPHILS # (AUTO) 4.3 10^3/uL (1.5-6.6); NEUTROPHILS % (AUTO) 64.5 %; PLT - PLATELET COUNT 147 10^3/uL (130-450); RED CELL DISTRIBUTION WIDTH 12.5 % (12.0-15.0); WHITE BLOOD COUNT 6.7 x10^3/uL (4.8-10.8)
--- NOTE | 2024-04-09 22:12 | HISTORY & PHYSICAL EXAMINATION ---
Admit History - Visit Reason Visit Reason: Other (labor induction. baby noted to be 6%ile on ultrasound yesterday.) - : 2 Parity: 1 Care: positive: [facility] Smoking Status: Never smoker - Other Maternal History Other Maternal History: HPI: Presents today for labor induction at 38 weeks. Ultrasound done 04/08 and baby is 6%ile. She is very uncomfortable and ready to be done. has help at home to watch her other child for labor. hopes for now epidural. baby is active. denies headache. minimal swelling. ultrasound done and report reviewed from 04/08/24: First dating scan (date and location): 10/03/2023. Estimated date of delivery (MAIA) from first dating scan: 04/22/2024. TECHNIQUE: Real-time scanning was performed of the fetus, with image documentation and biometric measurements. COMPARISON: 03/08/2024 FINDINGS: General: A single living intrauterine gestation is present. Presentation: Vertex Placenta: Placental position is posterior, without previa. Amniotic fluid index: 11.8 cm, within normal limits for gestational age. heart rate: 137 beats per minute. Maternal cervical canal: Not imaged . biometrics: Biparietal diameter: 9.03 cm, 36 weeks and 4 days, 34% Head circumference: 33.4 cm, 38 weeks and 1 day, 34.1% Abdominal circumference: 30.48 cm, 34 weeks and 3 days, 1.3% Femur length: 6.82 cm, 35 weeks, 2.5% Estimated gestational age from initial scan: 38 weeks Composite gestational age from present scan: 36 weeks Estimated weight and percentile: 2618 g, 6.6% Measurement variability in biometric dating: +/- 10 days from 12-20 weeks gestation, +/- 2 weeks from 20-30 weeks gestation, +/- 3 weeks at 30 weeks gestation or more. Cord Doppler range from 3.7-2.6 SD ratios. On visual evaluation, diastolic flow is preserved. Due to position, examination was limited. 04/09/2024 10:58AM (GMT-07:00) Allergies: Allergies Reviewed: Done No Known Allergies Medications: 28-800 mg-mcg tablet ([id number]) Problems: Maternal care for other known or suspected poor growth, third trimester, not applicable or unspecified ([id number]) Supervision, normal , multiparous (ICD-V22.1) (CLL75-C68.80) Past Medical History: Past Medical History was requested of patient but none was remarked. Past Surgical History: Unremarkable Vital Signs: Patient Profile: 24 Years Old Female Height: 71 inches Weight: 170.4 pounds BMI: 23.85 BP sittin / 68 Vitals Entered By: Ivana Melton LPN (April 04, 2024 1:25 PM) Flowsheet View for Follow-up Visit Estimated weeks of gestation: 37 3/7 Weight: 170.4 Blood pressure: 110 / 68 Fundal height: 35 FHR: 136 Vaginal bleeding: no Vaginal discharge: no activity: no Labor symptoms: rare ctx position: vertex Next visit: 1 wk Comment: Feeling well, occasional contractions, nothing regular. Disc ussed elective IOL after 39wks vs awaiting spontaneous labor, prefers to wait. Labor/ movement/preeclampsia precautions reviewed. - KML LMP: Unknown MAIA by LMP: Unknown Initial US Date 10/03/2023, US Age 11 weeks 1 day, MAIA by ultrasound: 04/22/2024 Final MAIA: 04/22/2024 by 11-week ultrasound social: . 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 in [employer]. came here 07/2023. daughter born 04/11/22, elevated blood pressure at end. easy delivery in [place]. Pre- Weight: 140 BMI: 20.41 Blood type: B+ Antibody: NEG CBC: H/H 12.0/35.6 PLT 225 RUB:IMMUNE VZV:NON IMMUNE HBsAg: NEGATIVE HepC: NR RPR/AB-EI A:NR HIV: NR PAP: 10/13/23 NILM GC/CT: 10/13/23 NEG HSV: denies Genetic testing: quad screen. APPROVED Covid: vaccinated early, declines current. Flu: declined FAS: Placenta:Posterior Cord:3VC DESMOND:11.2 EFW:378g 74.1% f/u normal 50gm OGCT: 107 3HR GTT: TDAP:01/30 Breast Pump:01/30 3rd trimester PLT 162 HGB 11.5 HCT 34.2 RPR : NR GBS:Negative Delivery plan: Contraception:Natural family planning P: 1 T: 1 A: 1 SAB: 1 L: 1 EDC: 04/22/2024 Height: 71 (03/28/2024 3:05:29 PM) Weight: 170.4 Weight (pre-): 140 (09/21/2023 10:56:38 AM) Chlamydia: NEGATIVE (10/13/2023 12:15:00 PM) Group B: NEGATIVE (03/28/2024 3:25:00 PM) Blood Type: B+ (10/13/2023 8:53:53 AM) Is pt sexually active? yes Chlamydia: NEGATIVE (10/13/2023 12:15:00 PM) RPR: Non Reactive (02/06/2024 2:48:00 PM) Last Pap: Normal (10/13/2023 11:48:57 AM) Next pap due: 10/13/2026 (10/17/2023 11:48:26 AM) - HPI Diagnosis/Indication for NST: Intrauterine growth restriction Current EDU 04/22/24 Gestation 38 Weeks and 1 Days 3 Vital Signs Temperature 98.1 F 04/09/24 19:00 Heart Rate 74 04/09/24 19:00 Respiratory Rate 18 04/09/24 19:00 Blood Pressure 115/77 04/09/24 19:00 Temperature 98.1 F 04/09/24 19:00 Heart Rate 74 04/09/24 19:00 Respiratory Rate 18 04/09/24 19:00 Blood Pressure 115/77 04/09/24 19:00 O2 Saturation If not protocol: Oxygen Flow, liters/minute - NST Procedure NST Procedure Start Time 09:52 Stop Time 10:21 - Results and Plan Findings/Impression: Reactive for of 32 weeks gestation or more. NST tracing contains at least two heart rate accelerations that are at least 15 beats per minute above the baseline rate and lasting at least 15 seconds from onset to return to baseline within a twenty minute period. Plan: proceed with labor induction Meds/Allgy - Home Medications Home Medications: Ambulatory Orders Medication Instructions Recorded Confirmed Famotidine [Pepcid] 20 mg PO DAILY #20 tablet 08/18/23 Ondansetron Odt [Zofran] 4 mg TL Q6H PRN #10 tablet 08/18/23 Promethazine [Phenergan] 25 mg PO Q6H PRN #10 tab 08/18/23 Ondansetron Odt [Zofran Odt] 4 mg TL Q6H PRN #10 tablet 12/07/23 - Allergies Allergies/Adverse Reactions: Allergies Allergy/AdvReac Type Severity Reaction Status Date / Time No Known Drug Allergies Allergy Verified 11/09/23 19:51 Physical - Abdominal Exam Vital Signs: Temp Pulse Resp BP Pulse Ox O2 Flow Rate 98.1 F 74 18 115/77 04/09/24 19:00 04/09/24 19:00 04/09/24 19:00 04/09/24 19:00 Contraction Frequency (min/apart): minimal, infrequent Uterine Resting Tone: positive: Soft - Monitoring Heart Rate Baseline: 135 Strip Review: positive: Category I - Presentation Presentation: positive: Vertex - Vaginal Exam Membranes: positive: Membranes intact Dilation (in cm): closed Effacement (%): 70 Station: positive: -1, 0 Cervical Position: positive: Posterior (cervical os was very hard to reach. baby's head was very low anteriorly and os was way behind.) - Speculum Exam Speculum Exam Performed: positive: No Plan for Labor - Plan For Labor I expect patient to be DC'd or transferred within 96 hours.: Yes Plan for Labor: admit for labor induction at 38 weeks due to growth at 6th%ile. reasons, alternative, process reviewed and consents signed. Will start with buccal miso 25 mcg. She is hoping to avoid pitocin and to avoid an epidural. discussed options of nitrous, bath, walking around. AROM later if cervix is reachable and that seems like it would help. GBS screen was negative.
[2024-04-10] MEDS: ACETAMINOPHEN 500 MG TABLET PO PRN (04:26)
[2024-04-10] MEDS: OXYTOCIN/SODIUM CHLORIDE 500 ML IV PRN (09:23)
[2024-04-10] MEDS ORDERED: HYDROCORTISONE 1% CREAM 28 GM TUBE PR PRN (09:37)
[2024-04-10] MEDS ORDERED: WITCH HAZEL/GLYCERIN 1 PAD TOP PRN (09:37)
[2024-04-10] MEDS: IBUPROFEN 800 MG TABLET PO PRN (10:24)
--- NOTE | 2024-04-10 10:55 | PHARMACY PROGRESS NOTE ---
- Best Possible Medication History Admit Date and Time: 04/09/241910 Processed by: Pharmacy (Medication Reconciliation completed by Quality Assurance Assistant, Cassidy) Medications reviewed in ED?: No Medication History completed: Yes Patient Interview: Pt unable to participate Secondary Source(s): Physician records, Insurance records As the person ultimately responsible for medication therapy, providers are able to order a medication from an existing home medication list in [facility] via the "Reconcile Routine" prior to Confirmation of that medication by production support manager. Such practice is discouraged except when the physician, in their clinical judgment, deems that a medical need exists for a medication without regard to previous use.
[2024-04-10] MEDS: FAMOTIDINE 20 MG TABLET PO SCH (16:21)
--- NOTE | 2024-04-10 19:50 | DELIVERY NOTE ---
Delivery Note - Infant Delivery Method Infant Delivery Method: positive: Spontaneous vaginal delivery - Cervical Ripening Method Cervical Ripening Method: positive: Misoprostil - Presentation Presentation: positive: Vertex - Nuchal Cord Nuchal Cord: positive: None - Anesthetic Anesthetic Type: - Amniotic Fluid Description Amniotic Fluid Description: positive: Clear - Episiotomy Type Episiotomy Type: positive: None - Laceration Laceration: positive: None - Delivery Outcome Delivery Outcome: positive: Livebirth - Nicholson: positive: Placed in direct skin contact with mother, Warmed, Harwood used sex: positive: Female - Cord Cord: positive: 3 vessels - Placenta Placenta: positive: Intact, Spontaneous, Other (quite small, about 10 cm round.) - Estimated Blood Loss Estimated Blood Loss (in cc): 475 - Post Delivery Events Post Delivery Events: positive: No post delivery events - Delivery Comments (Free Text/Narrative) Delivery Comments (Free Text/Narrative): Patient was admitted for induction of labor for 6th%ile baby. She received misoprostol x 2 and then went into spontaneous labor. She labored without sonia lgesia. She was 7+ cm at 7am so I came in. At 8:30 she was still only 7 cm. AROM was done. By 9 am she was complete and started pushing. She pushed for about 15 min to deliver her daughter in OA position over an intact perineum. Baby was placed on her abdomen where she was dried and stimulated. Cord was clamped and cut after about 2 minutes. Placenta delivered spontaneously with gentle traction. Uterus was massaged and was bleeding pretty briskly so IV was hooked up and oxytocin was infused. Perineum and vagina were inspected and there were no lacerations. Patient was exhausted and so baby was skin to skin with her Maulik so she could take a nap. Findings: baby girl Dieter weighing 2817 gm Apgars were 9/9. Small placental disc that otherwise appeared normal.
[2024-04-11] MEDS: DOCUSATE SODIUM 100 MG CAPSULE PO SCH (09:08)
--- NOTE | 2024-04-11 12:20 | DISCHARGE SUMMARY ---
Discharge Summary Admit Date: 04/09/24 Discharge Date: 04/11/24 Discharging Provider: Sunil Kim MD Condition at Discharge: Good Discharge Disposition: 01 Home, Self Care - HOSPITAL COURSE Hospital Course: Admission Diagnosis: - SIUP at 38w1d - Concern for FGR with EFW 6%tile on US on 04/08 - GBS neg - Rh pos - Rubella immune - Varicella non immune Final Diagnosis: - Same, delivered Procedures: , EBL 475cc Hospital Course: Isabell is a 24 yo who presented at 38w1d for IOL with con cern for growth restriction. She had an uncomplicated labor couse, , and course. Condition on Discharge: SUBJECTIVE: day 1 The patient feels well. Pain is well controlled with current medications, some cramping managed with motrin. The baby is doing well. Baby is feeding via breast and bottle. She is ambulating well, tolerating normal diet, urinating without difficulty. Lochia is reported as light She feels comfortable for discharge home today. OBJECTIVE: See vitals below. GENERAL: NAD CHEST: non labored respirations ABD: soft, non tender, fundus firm EXT: no lower extremity edema; No evidence of DVT LAB & IMAGING STUDIES: See below PLAN: Plan for discharge home with follow up in clinic in 1 week, OK for virtual follow up if does not want to come in to clinic. Reviewed home care instructions and medications. Patient counseled regarding signs and symptoms of infection, excessive bleeding, vaginal rest and activity restrictions. Contraceptive plans to be formalized at visit. - ALLERGIES Allergies/Adverse Reactions: Allergies Allergy/AdvReac Type Severity Reaction Status Date / Time No Known Drug Allergies Allergy Verified 11/09/23 19:51 - MEDICATIONS Home Medications: Ambulatory Orders Medication Instructions Recorded Confirmed Pnv No.95/Ferrous Fum/Folic AC 1 tab PO DAILY 04/10/24 04/10/24 [ Tablet] - LABS Result Diagrams: 04/09/24 20:35
[2024-04-11 13:25] VITALS: BP 109/80; O2SAT 98
[2024-04-11] MEDS: VARICELLA VACCINE LIVE/PF 1,350 UNIT/0.5 ML VIAL SUBQ ONE (14:38)
--- NOTE | 2024-04-11 15:16 | Labor Flowsheet ---
Labor Flowsheet Datetime Report Generated by CPN: 04/11/2024 15:16 Datetime: 04/11/2024 13:20 Pulse: 88 SpO2 (%): 100 Datetime: 04/11/2024 13:19 VITAL SIGNS NBP Sys/Lady/Mean (mmHg): 109 : 80 : 86 Datetime: 04/10/2024 11:40 Stage of : Recovery Datetime: 04/10/2024 09:56 Membranes Ruptured Date/Time: 04/10/2024 08:29 Amniotic Fluid Odor: None Datetime: 04/10/2024 09:39 MEDICATIONS Pitocin (milliunits): Decreased to @ 125 Datetime: 04/10/2024 09:23 Medication Comments: Post bolus Datetime: 04/10/2024 09:15 UTERINE ACTIVITY Monitor Mode: Palpation Monitor Interventions for UA: [place] Adjusted Frequency (min): 1.5-5 Quality: Strong Duration (sec): 50-70 Pattern: Normal: <= 5 Contractions in 10 Minutes Resting Tone (Palpate): Relaxed ASSESSMENT A Monitor Mode: Telemetry FHR Baseline Rate : 130 Variability: Moderate 6-25 bpm Accelerations: 15X15 Decelerations: Variable Category: Category II LaborFlag: Labor Datetime: 04/10/2024 09:03 STAGE 2 Pushing: Urge to Push; Involuntary Pushing Pushing Position: Pushing with Contractions; Pushing Left Side Pushing Progress: Descent with Pushing; Perineal Bulging Datetime: 04/10/2024 09:00 Actions for Decelerations: Provider Notified Comments: RN and MD continuously at bedside Datetime: 04/10/2024 08:48 COMMUNICATION Communication: Provider at Bedside Communication Comments: Dr. Matias Datetime: 04/10/2024 08:34 PATIENT CARE Patient Position/Activity: Left Tilt Patient Care Comments: peanut ball between legs Datetime: 04/10/2024 08:30 Contraction Comments: Difficulty tracing contractions due to maternal position. RN adjusting Datetime: 04/10/2024 08:29 Membrane Status: Ruptured Membranes Rupture Method: Artificial Amniotic Fluid Color: Clear Amniotic Fluid Amount: Small Datetime: 04/10/2024 08:28 VAGINAL EXAM Dilatation (cm): 7.0 Effacement (%): 90 Station: 2 Exam by: Dr. Matias Datetime: 04/10/2024 07:45 FHR Baseline Changes: No Baseline Change PAIN Pain Relief Measures: Comfort Measures Pain Coping: Declines Medication or Epidural; Writhing Comfort Measures: Breathing/Relaxation; Coaching; Back Rub Given; Family Support Datetime: 04/10/2024 07:30 Respirations: 14 Temperature (C): 36.6 Temperature Route: Oral Datetime: 04/10/2024 07:10 Notification Reason: Status Update Datetime: 04/10/2024 06:55 Vaginal Bleeding: None Cervix, Consistency: Soft Cervix, Position: Midposition Datetime: 04/10/2024 06:48 I/O Interventions: Up to BR Datetime: 04/10/2024 05:14 Monitor Interventions for FHR: Ultrasound Adjusted Datetime: 04/10/2024 04:29 Vital Sign Comments: pt sheila atthis moment retake performed. MATERNAL ASSESSMENT Level of Consciousness: Alert DTR's/Clonus: DTRs 2+ Headache: Occipital Nausea/Vomiting: Denies RUQ Epigastric Pain: Denies Datetime: 04/10/2024 00:18 Cervical Ripening Agents: Cytotec @
== END 2024-04-11 14:45 | disposition home or self-care (01) | DRG 807 ==
LOC: WFO 18:13 → FBP 18:14 → WFO 19:36
PROVIDERS: ADMIT Obstetrics & Gynecology; ATTEND Obstetrics & Gynecology
PROC: 3E0DXGC Introduction of Other Therapeutic Substance into Mouth and Pharynx, External Approach (ICD-10-PCS; principal; 2024-04-09)
PROC: 10E0XZZ Delivery of Products of Conception, External Approach (ICD-10-PCS; 2024-04-10)
PROC: 10907ZC Drainage of Amniotic Fluid, Therapeutic from Products of Conception, Via Natural or Artificial Opening (ICD-10-PCS; 2024-04-10)
DX: O36.5930 Maternal care for other known or suspected poor fetal growth, third trimester, not applicable or unspecified (principal); Z37.0 Single live birth; Z3A.38 38 weeks gestation of pregnancy
CPT/HCPCS: 36415; 59409; 85025; 86850; 86900; 86901; 90716; A9270

== ENCOUNTER 2024-05-11 18:34 | Emergency (ER) | payer OTHER ==
[2024-05-11 18:43] VITALS: BP 130/88; O2SAT 100
--- NOTE | 2024-05-11 20:13 | ED Physician Documentation ---
PD HPI HEENT - Stated complaint Stated Complaint: RT EAR PX - Chief complaint Chief Complaint: Heent - History obtained from History obtained from: Patient - Additional information Additional information: HPI from patient. Patient complains of rapid onset of right ear pain, described as "stabbing". Onset approximate 3 PM today when she woke from a nap. Denies history of similar symptoms. Denies injury, fever. Denies URI symptoms including sore throat. Hearing is slightly muffled in the right ear. The pain occasionally suddenly spikes in severity but never goes away entirely and there are no exacerbating nor ameliorating factors. Review of Systems Constitutional: denies: Fever Ears: reports: Loss of hearing (decreased right ear), Ear pain. denies: Drainage/discharge Throat: denies: Sore throat PD PAST MEDICAL HISTORY - Past Medical History Past Medical History: Yes Neuro: Migraines Psych: Anxiety, Post traumatic stress disorder - Past Surgical History Past Surgical History: No - Present Medications Home Medications: Ambulatory Orders Medication Instructions Recorded Confirmed Pnv No.95/Ferrous Fum/Folic AC 1 tab PO DAILY 04/10/24 04/10/24 [ Tablet] Amox/Clav 875/125 [Augmentin 1 tablet PO Q12H 7 Days #14 tablet 05/11/24 875/125 Tab] HYDROcod/ACETAM 5/325 [[place] 5/325] 1 tablet PO Q6H PRN #7 tablet 05/11/24 Ibuprofen [Motrin] 600 mg PO Q6H PRN #14 tab 05/11/24 - Allergies Allergies/Adverse Reactions: Allergies Allergy/AdvReac Type Severity Reaction Status Date / Time No Known Drug Allergies Allergy Verified 05/11/24 18:40 - Social History Does the pt smoke?: No Smoking Status: Never smoker Does the pt drink ETOH?: No Does the pt have substance abuse?: No - Immunizations Immunizations are current?: Yes - POLST Patient has POLST: No PD ED PE NORMAL - Vitals Vital signs reviewed: Yes - General General: Alert and oriented X 3, No acute distress (mostly NAD but occasional brief moments of sudden obvious painful distress), Well developed/nourished - HEENT HEENT: Moist mucous membranes - Neck Neck: Supple, no meningeal sign PD ED PE EXPANDED - HEENT HEENT: R TM red, R TM bulging, R TM loss of landmarks, Other (left TM normal; right EAC normal) Results - Vitals Vitals: Oxygen O2 Source Room air PD Medical Decision Making - ED course Complexity details: considered differential, d/w patient ED course: Physical exam demonstrates findings of the right TM that are highly consistent with right otitis media. She is given 875mg Augmentin PO, take-home pack of Vicodin, and 600 mg ibuprofen PO. I have a prescribed short course of Vicodin, ibuprofen, and a 1-week course of Augmentin to patient's pharmacy of choice. Return precautions reviewed Departure - Departure Disposition: Home, Self Care Clinical Impression: Otitis media Qualifiers: Otitis media type: suppurative Chronicity: acute Laterality: right Recurrence: not specified as recurrent Spontaneous tympanic membrane rupture: without sp ontaneous rupture Qualified Code(s): H66.001 - Acute suppurative otitis media without spontaneous rupture of ear drum, right ear Condition: Good Instructions: ED Otitis Media Acute Adult Prescriptions: Amox/Clav 875/125 [Augmentin 875/125 Tab] 1 tablet PO Q12H 7 Days #14 tablet Ibuprofen [Motrin] 600 mg PO Q6H PRN #14 tab PRN Reason: Pain HYDROcod/ACETAM 5/325 [[place] 5/325] 1 tablet PO Q6H PRN #7 tablet PRN Reason: Pain Comments: On the physical exam, there are findings consistent with a right middle ear infection. For this, you were given the first dose of antibiotic (Augmentin) and I have electronically submitted a prescription for a one-week course of this antibiotic to the [facility] pharmacy in [place]. I have also submitted prescriptions for ibuprofen and Vicodin (narcotic/opiate pain medication). I recommend using the ibuprofen and if inadequate relief after one hour, you can then use the Vicodin. Do not use any acetaminophen/Tylenol or products that contain acetaminophen/Tylenol, as there is acetaminophen in the Vicodin and too much acetaminophen to be very dangerous to your liver. I am prescribing a short course of narcotic pain medication for you. These are potentially dangerous and addictive medications that should be used carefully. These medications may constipate you. Take an nlle-ozh-ruintqk stool softener (docusate) twice daily with plenty of water while taking these medications. If you go 24 hours without a bowel movement, take [id number]-[id number] miralax, per package instructions. Do not drink or drive while taking these medications. If you received narcotic or sedating medications while in the emergency department, do not drive for 24 hours. Store this medication in a safe, secure place and out of reach of children. It is a violation of federal law to give or sell this medication to another person or to use in a manner other than prescribed. The ED will not refill narcotic prescriptions, including prescriptions lost or stolen. To dispose of unwanted medications: 1. [facility] at [address] in [place] has a medication drop box. They accept prescription medications (in pill form) Monday through Monday 9:00 a.m. to 5:00 p.m. 2. The [facility] [employer] accepts prescription medications (in pill form only) for disposal year round. Call for more information. 3. Contact the [facility] for the next [facility] sponsored prescription drug collection event. , [phone], or [phone]; Note that many narcotic pain relievers also contain Tylenol/acetaminophen. Please ensure that your total dose of acetaminophen from all sources does not exceed 3 g (3000 mg) per day. Discharge Date/Time: 05/11/24 21:12
[2024-05-11] MEDS: AMOX/CLAV 875 MG/125 MG TABLET PO STA (20:48)
[2024-05-11] MEDS: IBUPROFEN 600 MG TABLET PO STA (20:48)
[2024-05-11] MEDS: HYDROcod/ACET 5/325 Prepack 4 PO STA (20:49)
== END 2024-05-11 21:12 | disposition home or self-care (01) ==
LOC: ED 18:34
DX: H66.001 Acute suppurative otitis media without spontaneous rupture of ear drum, right ear (principal)
CPT/HCPCS: 99283; A9270